=== PATIENT | female | born 1985 | race Caucasian/White ===

== ENCOUNTER 2021-06-19 04:52 | Inpatient (IN) | payer BC, SELFPAY ==
[2021-06-19] VITALS (92 sets, daily range): BP systolic 78–159; BP diastolic 42–117; PULSE 76–133; RESP 16; TEMP 36.4–37.6; O2SAT 97–100; BMI 36.3
--- NOTE | 2021-06-19 05:24 | LDADM ---
This patient, Arabella Putnam, was admitted to Labor/Delivery/Recovery 107 on 06/19/21 at 04:52. Plans for labor, pain management and were discussed with patient. Patient/family oriented to hospital policies and general routines including ID bracelet, bed and alarms, visiting hours, pain management, procedures, bathroom and other care routines, personal items, smoking policy, room service/diet and guest tray routines, infant security routines, and visiting hours. Patient/Family are encouraged to report perceived risks to care and to ask questions if they do not understand what they are told or what they should do. See OBIX for further documentation.
[2021-06-19 05:47] LABS: Basophils Percent Auto 0.2 % (0.2-1.2); Eosinophils Absolute Auto 0.1 K/mm3 (0-0.3); Eosinophils Percent Auto 0.5 % (0-4.4); Hematocrit 32.4 % (37.0-47.0); Hemoglobin 10.3 g/dL (12.0-15.0); Immature Granulocyte Absolute 0.06 K/mm3 (0.00-0.031); Immature Granulocyte Percent A 0.5 % (0-0.5); Lymphocytes Percent Auto 12.5 % (18.3-44.2); Mean Corpuscular HGB Conc 31.8 g/dl (32-36); Mean Corpuscular Hemoglobin 27.2 pg (26-34); Mean Corpuscular Volume 85.5 fl (80-100); Mean Platelet Volume 10.5 fl (7.4-10.4); Monocytes Absolute Auto 0.9 K/mm3 (0.1-0.6); Neutrophils Absolute Auto 10.2 K/mm3 (1.3-6.7); Neutrophils Percent Auto 79.3 % (45.5-73.1); Platelet Count Result 322 k/mm3 (150-375); Red Blood Count 3.79 M/mm3 (4.2-5.4); Red Cell Distribution Width 14.1 % (11.5-14.5); White Blood Count 12.8 K/mm3 (4.5-10.0)
[2021-06-19] MEDS: LACTATED RINGERS 1,000 ML 125 ML IV CONT ×2 (06:19→09:56)
[2021-06-19] MEDS: OXYTOCIN 30 UNITS/NS 500 ML 30 UNITS/500 ML BAG 6 UNITS IV CONT (06:19)
--- NOTE | 2021-06-19 06:24 | WPDANESEPP ---
Anes - Eval Pre Procedure Procedure: Labor epidural Date/Time: 06/19/21 06:24 Surgeon: Pedro Preop Diagnosis: Abd pain with contractions Pre Op Diagnosis: IOL Patient Data Age: 35 Gender: F Height: 1.7 m Weight: 105.2 kg Last Vital Signs Pulse 101 H 06/19/21 06:15 BP 114/68 06/19/21 06:15 Allergies Allergy/AdvReac Type Severity Reaction Status Date / Time No Known Allergies Allergy Verified 05/28/21 14:37 Home Medications Medication Instructions Recorded Confirmed Type fluoxetine 20 mg PO DAILY 06/19/21 06/19/21 History Laboratory Tests 06/19/21 06/19/21 05:29 05:29 WBC 12.8 K/mm3 H K/mm3 (4.5-10.0) RBC 3.79 M/mm3 L M/mm3 (4.2-5.4) Hgb 10.3 g/dL L g/dL (12.0-15.0) Hct 32.4 % L % (37.0-47.0) MCV 85.5 fl fl (80-100) MCH 27.2 pg pg (26-34) MCHC 31.8 g/dl L g/dl (32-36) RDW 14.1 % % (11.5-14.5) Plt Count 322 k/mm3 k/mm3 (150-375) MPV 10.5 fl H fl (7.4-10.4) Immature Gran % (Auto) 0.5 % % (0-0.5) Neut % (Auto) 79.3 % H % (45.5-73.1) Lymph % (Auto) 12.5 % L % (18.3-44.2) [place] % (Auto) 7.0 % % (2.6-8.5) Eos % (Auto) 0.5 % % (0-4.4) Baso % (Auto) 0.2 % % (0.2-1.2) Lymph # (Auto) 1.60 K/mm3 K/mm3 (0.9-3.2) [place] # (Auto) 0.9 K/mm3 H K/mm3 (0.1-0.6) Eos # (Auto) 0.1 K/mm3 K/mm3 (0-0.3) Baso # (Auto) 0.0 K/mm3 K/mm3 (0.0-0.1) Abs Immat Gran (auto) 0.06 K/mm3 H K/mm3 (0.00-0.031) Absolute Neuts (auto) 10.2 K/mm3 H K/mm3 (1.3-6.7) Absolute Nucleated RBC 0.0 K/mm3 K/mm3 (0.0-0.012) Nucleated RBC % 0.0 % % (0.0-0.2) RPR Pending Patient hx anesthesia problems: none Family hx anesthesia problems: none Results Review: All pre-operative results and documents have been reviewed as part of the pre-operative evaluation. [facility] Past Medical History Medical History Obesity and not yet delivered Surgical History Surgical History H/O discectomy Family History Family History Father Diabetes type 2, controlled Mother A-fib Congestive heart failure Social History Social History Smoking status: Never smoker Substance use: never Spiritual care concerns: No Exam Day of Procedure 06/19/21 06:24 Patient weight: obese Heart: regular rate and rhythm Airway: Mallampati scale class III Neurological: alert and oriented
[2021-06-19 08:25] LABS: Rapid Plasma Reagin Non-Reactive (NonReactive)
--- NOTE | 2021-06-19 08:45 | WPDOBADMIT ---
Obstetrics - Admit Note Admission Note: record reviewed. Additions to the history and/or subsequent changes in the physical findings follow. 35 y/o at 39 2/7 weeks here for induction of labor. GBS neg. AVSS NST reactive TOCO: contractions every 2-4 min ABD soft, nontender, gravid, vertex EXT nontender Cervix 3-4/50/-2. AROM with clear fluid. A: IUP at term with favorable cervix, desiring induction of labor. P: Oxytocin. Anticipate .
--- NOTE | 2021-06-19 13:30 | PM.OBPNLAB ---
Pain Control Date/time seen: 06/19/21 1330 Comfortable with epidural. AVSS NST reactive TOCO: contractions every 2-4 min Cervix /0 Continue labor.
--- NOTE | 2021-06-19 18:13 | PM.OBPRVD ---
OB - Delivery Note Procedure Delivery date: 06/19/21 Procedure: Induction of labor with Induction method: AROM and Per Pitocin Protocol Delivery monitor: External FHT and External Uterine Route of delivery: Laceration Description: Perineal - 2nd Degree Delivery repair: vicryl (3-0) Specimen: Yes (cord blood) Quantitative Blood Loss (ml): 380 Anesthesia type: Epidural Disposition: PACU Complications: None Narrative: 35 y/o at 39 2/7 weeks gestation who presented to the hospital for induction of labor. Oxytocin was administered intravenously. Amniotomy was performed with return of clear fluid. She received an epidural for pain control. Her labor progressed and her cervix dilated completely. She pushed with good effort and delivered the infant's head to the perineum. A loose nuchal cord was splinted and the body delivered. The cord was reduced. The nose and mouth were bulb suctioned. After a delay, the cord was clamped and cut. The infant was handed off the field. Cord blood was collected. The placenta delivered spontaneously and was grossly normal in appearance. The usual 3 vessel cord was noted. A second degree midline perineal laceration was sustained. This was reapproximated using 3 0 Vicryl in the usual layered fashion. Excellent hemostasis resulted as did excellent reapproximation of the normal anatomy. Needle and instrument counts were correct. The patient was taken to recovery room in stable condition. The went to the nursery in stable condition. I was present and scrubbed for the entire delivery. [place] Baby Date of : 06/19/21 Time of : 17:51 Weeks of gestation at delivery: 39 Infant gender: Male Weight (pounds): 7 Weight (ounces): 15 presentation: vertex position: Left Occiput Transverse Placenta delivery description: Spontaneous and Normal Configuration Cord Vessel Description: 3 Vessels and Delayed Cord Clamping score one minute: 8 score five minutes: 8
--- NOTE | 2021-06-19 18:15 | PM.OBDSVD ---
DS: Admitting Diagnosis Discharge Date 06/21/21 Admitting Diagnosis IUP at 39 2/7 weeks DS: Discharge Diagnosis Discharge Diagnosis (1) (normal spontaneous vaginal delivery): Code(s): O80 - Encounter for full-term uncomplicated delivery Status: Acute OB - DS: Summary OB Procedures : None OB Procedures Intrapartum: Spontaneous Vag Delivery OB Procedures: : None DS: Data Data Completed and Pending Labs on day of discharge: Labs from last 24 hours 06/19/21 06/19/21 06/19/21 05:29 05:29 05:29 WBC 12.8 H RBC 3.79 L Hgb 10.3 L Hct 32.4 L MCV 85.5 MCH 27.2 MCHC 31.8 L RDW 14.1 Plt Count 322 MPV 10.5 H Immature Gran % (Auto) 0.5 Neut % (Auto) 79.3 H Lymph % (Auto) 12.5 L [place] % (Auto) 7.0 Eos % (Auto) 0.5 Baso % (Auto) 0.2 Lymph # (Auto) 1.60 [place] # (Auto) 0.9 H Eos # (Auto) 0.1 Baso # (Auto) 0.0 Abs Immat Gran (auto) 0.06 H Absolute Neuts (auto) 10.2 H Absolute Nucleated RBC 0.0 Nucleated RBC % 0.0 RPR Non-reactive Blood Type O Negative Antibody Screen Negative Discharge Plan Discharge Attending physician on discharge: Miah Vasquez Discharging Clinician: Miah Vasquez Patient Disposition: Home, Self-Care Activity: pelvic rest Diet: regular Discharge Instructions: Education: Mom and Baby Guide Given to: Mother Follow-Up: Call your delivering provider's office for an appointment to be seen in: 6 Weeks Mom and baby should come to the [facility] for the follow-up appointment. Appointment Date/Time: Tuesday, June 22, 2021 at 10:00 a.m. What to expect at your follow-up visit: Blood Pressure Check Physical Assessment Call [phone] if you are unable to keep your appointment time. BREAST CARE: * Wear a snug supportive bra. * For engorgement discomfort: Breast Feeding: * Apply warm moist washcloths * Express milk as needed to relieve engorgement * Wear loose clothing Bottle Feeding: * May apply ice packs * For sore nipples: * Identify correct latch-on * Apply warm moist washcloths before and after nursing * Air dry nipples after nursing * May apply Lansinoh cream to nipples EPISIOTOMY/PERINEAL CARE: * Until bleeding stops, use your brendon bottle after urinating * Change your pad frequently throughout the day * You may take sitz baths several times a day (fill your bathtub with warm water and soak for 20 minutes.) Do NOT bathe in the water * No tub baths until seen by your physician - You may shower ACTIVITY: * Rest as much as possible. * Do not exercise or lift anything heavier than your baby (such as laundry or other children.) * Avoid stairs or driving as much as possible. * Do not put anything into the vagina. No douching, tampons, or sexual activity until seen by physician. NOTIFY PHYSICIAN IF YOU HAVE ANY QUESTIONS OR IF ANY OF THE FOLLOWING SYMPTOMS OCCUR: * If your perineum becomes red, swollen, or more painful than what you have experienced in the hospital. * If your vaginal bleeding becomes foul smelling. * If your vaginal bleeding becomes more heavy than a period or if your bleeding changes from pink to bright red. However, you may pass an occasional walnut-sized clot once or twice for the first week . * If you experience a sharp, shooting pain in you calves. * If you discover a hard, reddened area on your breast or if you experience flu-like symptoms. DIET: * Eat regular, well-balanced meals. * Drink plenty of fluids daily. If , drink to thirst. Call or return if temperature above 100.4? F, increased abdominal pain, increased vaginal bleeding or any new problems. Stand Alone Forms: General Discharge Information Follow-up/Referrals: Miah Vasquez MD [Physician] - 6 Weeks Discharge
[2021-06-19] MEDS: OXYTOCIN 30 UNITS/NS 500 ML 30 UNITS/500 ML BAG 125 UNITS IV CONT (18:18)
--- NOTE | 2021-06-19 21:02 | OBPPTRN ---
Patient transferred to post room #288 via ( wheelchair ). Support person present. Oriented to unit, room, information board, rooming in, admission packet and security measures. Patient verbalizes understanding.
[2021-06-20 03:40] VITALS: BP 108/54; PULSE 97; RESP 16; TEMP 37.1
[2021-06-20 04:41] LABS: Hematocrit 30.9 % (37.0-47.0); Hemoglobin 9.5 g/dL (12.0-15.0)
[2021-06-20 07:55] VITALS: BP 97/51; PULSE 86; RESP 16; TEMP 37; O2SAT 99
--- NOTE | 2021-06-20 08:00 | PC.NURSE ---
PT introductions made and plan of care discussed per post , pain management, breast/bottle feeding, daily care activities. PT and significant other both recipients of such instructions and no barriers to learning identified at this time. PT received instructions this shift via one to one discussion, mom baby care guide book, demonstrations. PT verbalized understanding of such care.
[2021-06-20] MEDS: FLUoxetine HCL 20 MG CAPSULE PO (09:01)
[2021-06-20] MEDS: DOCUSATE SODIUM 100 MG CAPSULE PO ×2 (09:01→17:06)
[2021-06-20] MEDS: POLYSACCHARIDE IRON COMPLEX 150 MG CAPSULE PO ×2 (09:01→17:06)
[2021-06-20] MEDS: IBUPROFEN 600 MG TABLET PO ×2 (09:02→17:05)
[2021-06-20] MEDS: ACETAMINOPHEN 325 MG TABLET 650 MG PO ×2 (09:03→17:04)
--- NOTE | 2021-06-20 10:09 | WPDANLDPN2 ---
Anes-Prog Note L&D Date/Time: 06/20/21 10:09 Comfortable throughout: labor and delivery Neuraxial method: epidural Epidural/Spinal procedure site: clean & non-tender Neuro status: Neuro function grossly intact. Cardiovascular status: normal Respiratory status: normal Airway patency: baseline Mental status: baseline Post-Op hydration status: normal Vital Signs: Last Vital Signs Temp 37.0 C 06/20/21 07:55 Pulse 86 06/20/21 07:55 Resp 16 06/20/21 07:55 BP 97/51 L 06/20/21 07:55 Pulse Ox 99 06/20/21 07:55 Pain score (VAS): 0 I/O: Intake & Output 06/19/21 06/20/21 06/20/21 23:59 07:59 15:59 Output Total 35 Balance -35 Post-procedural complaints: none Patient feedback: Patient satisfied with anesthetic care.
[2021-06-20 11:41] VITALS: BP 97/52; PULSE 89; RESP 16; TEMP 36.4; O2SAT 99
--- NOTE | 2021-06-20 15:56 | PC.NURSE ---
[phone] Consulted with patient to assess needs related to . Mother led conversation with her experience with feeding baby so far. Mother has her baby on the right breast in cross cradle position. Reviewed good handwashing when working with infant, breast, nipples and how to protect the nipples with a deep latch. Encouraged understanding the benefits of skin to skin, responding to feeding cues, frequencies of feeding 8-12 times in 24 hours (approximately 2-3 hours), duration of feedings, milk production, intake/output feeding sheet and signs of adequate intake. Discussed stimulating infant with skin to skin, hand expressing colostrum, touch and talking to to encourage eating at the breast. Reviewed positioning and alignment, supporting breast, off-centered (asymmetrical latch) and leading with the chin with big open wide gape. Education given to mother of how to visualize suck/swallow ratios and drinking at the breast. Infant was able to maintain latch without discomfort to mother. Nipple care, comfort and healing with warm, wet washcloth to rinse breast and leave to air-dry. Colostrum may be left on nipples to dry but have clean hands when touching the nipple/breast. Resources used to facilitate learning were used from the mom and baby guide. Mother voiced understanding responding to feeding cues, may need to stimulating approximately 2-3 hours from the start of the last feeding, calling for assistance if the does not latch or there discomfort . Reported to primary RN. [phone] Breast pump provided due to mothers request related to not latching to the left breast due to a flat nipple. Reviewed information regarding pump care, hand washing, nipple care and pumping 8 times in 24 hours (1-2 at night) for 10-15 minutes. Discussed she may want to pump after feedings or between feedings. If after feeding, rest for 5-10 minutes. Discussed the risks and benefits of pumping and using a nipple shield. Encouraged mom to place skin to skin, breast massage and use hand expression and/or a breast pump in a relaxing atmosphere. Reviewed recording pumping schedule on the feeding sheet. Referred to the visual handout along with the mom and baby guide as a resource and when to call a provider. Reported to primary RN.
[2021-06-20 19:06] VITALS: BP 104/52; PULSE 83; RESP 18; TEMP 36.8
[2021-06-21 08:00] VITALS: BP 110/61; PULSE 76; RESP 18; TEMP 36.3; O2SAT 100
[2021-06-21] MEDS: ACETAMINOPHEN 325 MG TABLET 650 MG PO (08:25)
[2021-06-21] MEDS: POLYSACCHARIDE IRON COMPLEX 150 MG CAPSULE PO (08:26)
[2021-06-21] MEDS: MULTIVIT/MIN/PREN/FOL AC/IRON TABLET 1 TAB PO (08:26)
[2021-06-21] MEDS: DOCUSATE SODIUM 100 MG CAPSULE PO (08:26)
[2021-06-21] MEDS: IBUPROFEN 600 MG TABLET PO (08:26)
[2021-06-21] MEDS: FLUoxetine HCL 20 MG CAPSULE PO (08:27)
[2021-06-22 11:22] VITALS: BP 106/62; PULSE 78; RESP 18; TEMP 36.8; O2SAT 99
--- NOTE | 2021-06-28 10:06 | PC.NURSE ---
Called wanting to schedule an outpatient appt. Saw Dr. Aguilar for appt yesterday. No jaundice or output concerns per patient. Mom is concerned because infant is not gaining weight. States she is feeding formula at night and feeding pumped breast milk or during the day depending on if infant will latch to the breast. States takes 2 ounces per feeding per bottle. is feeding every 3 hours during the day and every 4 hours at night. Encouraged mom to continue to increase feeding amounts as infant desires. States is content after day time feedings. Mom is pumping after every feeding. Appt made for 10 am Thursday.
--- NOTE | 2021-06-28 11:13 | PC.NURSE ---
Called patient back and offered her info on professionals in the community that could possibly see her today or over the weekend. States she will keep appt for Thursday at this time.
== END 2021-06-21 11:37 | disposition home or self-care (01) | DRG 807 ==
LOC: ANHLDR 18:16 → ANHOB2 06-21 09:57 → ANHLDR 06-24 10:20 → ANHOB2 06-24 10:20
PROVIDERS: Admitting Provider Obstetrics & Gynecology; PCP Family Medicine; Visit Provider Student in an Organized Health Care Education/Training Program
DX: O70.1 Second degree perineal laceration during delivery (principal); Z37.0 Single live birth; Z3A.39 39 weeks gestation of pregnancy
CPT/HCPCS: 36415; 85014; 85018; 85025; 86592; 86850; 86900; 86901; A9270; J2590; J2795; J7120

== ENCOUNTER 2023-10-26 16:45 | Outpatient (RCR) | payer BC, SELFPAY ==
[2023-10-26 18:09] VITALS: BP 106/64; PULSE 101
== END 2024-01-24 23:59 | disposition home or self-care (01) ==
LOC: ANHOBOP 16:45
PROVIDERS: PCP Family Medicine; Visit Provider Obstetrics & Gynecology
DX: O36.8130 Decreased fetal movements, third trimester, not applicable or unspecified (principal); Z3A.32 32 weeks gestation of pregnancy
CPT/HCPCS: 59025

== ENCOUNTER 2023-12-04 03:33 | Inpatient (IN) | payer BC, SELFPAY ==
[2023-12-04] VITALS (124 sets, daily range): BP systolic 86–127; BP diastolic 39–93; PULSE 66–104; RESP 16; TEMP 36.4–36.7; O2SAT 96–100; BMI 36.2
[2023-12-04 04:43] LABS: Basophils Percent Auto 0.2 % (0.2-1.2); Eosinophils Absolute Auto 0.1 K/mm3 (0-0.3); Eosinophils Percent Auto 0.6 % (0-4.4); Hemoglobin 11.3 g/dL (12.0-15.0); Immature Granulocyte Absolute 0.04 K/mm3 (0.00-0.031); Immature Granulocyte Percent A 0.4 % (0-0.5); Lymphocytes Absolute Auto 1.49 K/mm3 (0.9-3.2); Mean Corpuscular HGB Conc 32.3 g/dl (32-36); Mean Corpuscular Hemoglobin 26.3 pg (26-34); Mean Corpuscular Volume 81.4 fl (80-100); Mean Platelet Volume 10.8 fl (7.4-10.4); Monocytes Absolute Auto 0.6 K/mm3 (0.1-0.6); Monocytes Percent Auto 5.5 % (2.6-8.5); Neutrophils Absolute Auto 8.5 K/mm3 (1.3-6.7); Neutrophils Percent Auto 79.3 % (45.5-73.1); Platelet Count Result 312 k/mm3 (150-375); Red Cell Distribution Width 14.2 % (11.5-14.5); White Blood Count 10.6 K/mm3 (4.5-10.0)
--- NOTE | 2023-12-04 04:46 | LDADM ---
This patient, Arabella Putnam, was admitted to Labor/Delivery/Recovery 104 on 12/04/23 at 03:33. Plans for labor, pain management and were discussed with patient. Patient/family oriented to hospital policies and general routines including ID bracelet, bed and alarms, visiting hours, pain management, procedures, bathroom and other care routines, personal items, smoking policy, room service/diet and guest tray routines, infant security routines, and visiting hours. Patient/Family are encouraged to report perceived risks to care and to ask questions if they do not understand what they are told or what they should do. See OBIX for further documentation.
--- NOTE | 2023-12-04 05:02 | WPDANESEPP ---
Anes - Eval Pre Procedure Procedure: labor epidural Date/Time: 12/04/23 05:02 Pre Op Diagnosis: ROM Patient Data Age: 38 Gender: F Height: 1.7 m Weight: 105 kg Last Vital Signs Pulse 79 12/04/23 05:00 BP 123/93 H 12/04/23 05:00 O2 Del Method Room Air 12/04/23 04:46 Allergies Allergy/AdvReac Type Severity Reaction Status Date / Time No Known Allergies Allergy Verified 11/17/23 12:25 Home Medications Medication Instructions Recorded Confirmed Type fluoxetine 20 mg capsule 40 mg PO DAILY 06/19/21 11/17/23 History vits no.126-ferrous fum 1 tablet PO DAILY 11/17/23 11/17/23 History 28 mg iron-folic acid 800 mcg tablet (Classic ) Laboratory Tests 12/04/23 04:27 WBC 10.6 H K/mm3 (4.5-10.0) RBC 4.30 M/mm3 (4.2-5.4) Hgb 11.3 L g/dL (12.0-15.0) Hct 35.0 L % (37.0-47.0) MCV 81.4 fl (80-100) MCH 26.3 pg (26-34) MCHC 32.3 g/dl (32-36) RDW 14.2 % (11.5-14.5) Plt Count 312 k/mm3 (150-375) MPV 10.8 H fl (7.4-10.4) Immature Gran % (Auto) 0.4 % (0-0.5) Neut % (Auto) 79.3 H % (45.5-73.1) Lymph % (Auto) 14.0 L % (18.3-44.2) [place] % (Auto) 5.5 % (2.6-8.5) Eos % (Auto) 0.6 % (0-4.4) Baso % (Auto) 0.2 % (0.2-1.2) Lymph # (Auto) 1.49 K/mm3 (0.9-3.2) [place] # (Auto) 0.6 K/mm3 (0.1-0.6) Eos # (Auto) 0.1 K/mm3 (0-0.3) Baso # (Auto) 0.0 K/mm3 (0.0-0.1) Abs Immat Gran (auto) 0.04 H K/mm3 (0.00-0.031) Absolute Neuts (auto) 8.5 H K/mm3 (1.3-6.7) Absolute Nucleated RBC 0.000 K/mm3 (0.0-0.012) Nucleated RBC % 0.0 % (0.0-0.2) RPR Pending HIV 1&2 Ab/P24 Ag 4thGn Pending Blood Type Pending Antibody Screen Pending Patient hx anesthesia problems: none Family hx anesthesia problems: none Results Review: All pre-operative results and documents have been reviewed as part of the pre-operative evaluation. [facility] Past Medical History Medical History Obesity and not yet delivered Surgical History Surgical History H/O discectomy Family History Family History Father Diabetes type 2, controlled Mother A-fib Congestive heart failure Social History Social History Smoking status: Never smoker Substance use: never Do You Feel Safe in your Home?: Yes Lack of Transportation: No Lack of Food: Never True Current Housing: I Have Housing Concerned About Future Housing: No Difficulty Paying Gas/Electric Bills: No Difficulty Paying for Meds: No Currently Unemployed: No Education: Associate Degree Difficulty w/ Childcare or Family Care: No Spiritual care concerns: No Exam Day of Procedure 12/04/23 05:02 Patient weight: obese Heart: regular rate and rhythm Lungs: normal air movement Airway: Mallampati scale Neurological: alert and oriented
[2023-12-04] MEDS: LACTATED RINGERS 1,000 ML 125 ML IV CONT ×2 (05:09→09:16)
[2023-12-04] MEDS: ONDANSETRON INJ 4 MG/2 ML VIAL IV PUSH ×2 (05:09→13:37)
[2023-12-04 05:15] LABS: Rapid Plasma Reagin Non-Reactive (NonReactive)
[2023-12-04 05:44] LABS: HIV 1/2 Ab P24 Ag Result Negative (Negative)
--- NOTE | 2023-12-04 06:45 | PM.IMHP ---
H&P: HPI History of Present Illness Date/Time: 12/04/23 06:45 Chief Complaint: Rupture membranes at term Narrative: 38-year-old 3 para 1 whose last bits free fluid 02/24/2023, EDC 9 06/06, confirmed by 7 week ultrasound who presents at 38 half weeks gestation with ruptured membranes. Her has been relatively uncomplicated. She received RhoGAM. She had an abnormal 1hour diabetic screen but 4/4 3hour. She suffers from depression is on fluoxetine she has a history of abnormal Paps she did receive RhoGAM that she desired desires tubal ligation PMFSH Past Medical History Medical History Obesity and not yet delivered Surgical History Surgical History H/O discectomy Family History Family History Father Diabetes type 2, controlled Mother A-fib Congestive heart failure Social History Social History Smoking status: Never smoker Substance use: never Do You Feel Safe in your Home?: Yes Lack of Transportation: No Lack of Food: Never True Current Housing: I Have Housing Concerned About Future Housing: No Difficulty Paying Gas/Electric Bills: No Difficulty Paying for Meds: No Currently Unemployed: No Education: Associate Degree Difficulty w/ Childcare or Family Care: No Spiritual care concerns: No Meds Home Medications and Allergies Home Medications Medication Instructions Recorded Confirmed Type fluoxetine 20 mg capsule 40 mg PO DAILY 06/19/21 11/17/23 History vits no.126-ferrous fum 1 tablet PO DAILY 11/17/23 11/17/23 History 28 mg iron-folic acid 800 mcg tablet (Classic ) Allergies Allergy/AdvReac Type Severity Reaction Status Date / Time No Known Allergies Allergy Verified 11/17/23 12:25 Vital Signs Vital Signs - 24 hr 12/04/23 04:30 12/04/23 04:45 12/04/23 05:00 Temperature Pulse Rate 85 79 79 Blood Pressure 116/72 118/71 123/93 H Pulse Oximetry Oxygen Delivery 12/04/23 05:03 12/04/23 05:08 12/04/23 05:13 Temperature Pulse Rate Blood Pressure Pulse Oximetry 99 99 100 Oxygen Delivery 12/04/23 05:15 12/04/23 05:16 12/04/23 05:18 Temperature Pulse Rate 82 66 73 Blood Pressure 114/58 L 104/58 L 108/61 Pulse Oximetry 99 Oxygen Delivery 12/04/23 05:20 12/04/23 05:21 12/04/23 05:23 Temperature Pulse Rate 86 Blood Pressure 110/93 H 100/52 L Pulse Oximetry 96 Oxygen Delivery 12/04/23 05:25 12/04/23 05:28 12/04/23 05:30 Temperature Pulse Rate 84 94 84 Blood Pressure 106/55 L 107/58 L 100/51 L Pulse Oximetry 97 98 Oxygen Delivery 12/04/23 05:33 12/04/23 05:35 12/04/23 05:38 Temperature Pulse Rate 88 90 89 Blood Pressure 101/53 L 101/51 L 104/49 L Pulse Oximetry 100 Oxygen Delivery 12/04/23 05:40 12/04/23 05:43 12/04/23 05:45 Temperature Pulse Rate 95 90 Blood Pressure 113/60 104/55 L Pulse Oximetry 97 99 Oxygen Delivery 12/04/23 05:46 12/04/23 05:48 12/04/23 05:50 Temperature Pulse Rate 94 90 Blood Pressure 86/50 L 107/61 Pulse Oximetry 100 Oxygen Delivery 12/04/23 05:55 12/04/23 06:00 12/04/23 06:01 Temperature Pulse Rate 75 Blood Pressure 96/44 L Pulse Oximetry 100 100 Oxygen Delivery 12/04/23 06:05 12/04/23 06:10 12/04/23 06:15 Temperature Pulse Rate 75 Blood Pressure 95/47 L Pulse Oximetry 100 99 98 Oxygen Delivery 12/04/23 06:20 12/04/23 06:25 12/04/23 06:30 Temperature Pulse Rate 79 Blood Pressure 94/53 L Pulse Oximetry 98 98 97 Oxygen Delivery 12/04/23 06:35 12/04/23 06:33 12/04/23 06:40 Temperature 97.6 F Pulse Rate Blood Pressure Pulse Oximetry 100 97 Oxygen Delivery 12/04/23 04:
[2023-12-04] MEDS: OXYTOCIN 30 UNITS/NS 500 ML 30 UNITS/500 ML BAG IV CONT (06:53)
--- NOTE | 2023-12-04 11:52 | PM.OBPRVD ---
OB - Vaginal Delivery Note Procedure Delivery date: 12/04/23 Induction method: None Delivery augmentation: Pitocin Delivery monitor: External FHT and External Uterine Route of delivery: Episiotomy description: None Laceration Description: Perineal - 1st Degree Delivery repair: vicryl Specimen: No Quantitative Blood Loss (ml): 61 Anesthesia type: Epidural Disposition: Floor Complications: No immediate complications Narrative: Patient was admitted with 12/04/2023 in the early a.m.. She has spontaneously ruptured prior to admission. She progressed to remove 1st stage labor and did have some Pitocin and answered direction which was complete she pushed the head spontaneously in the IDRIS position. Anterior posterior shoulder delivered spontaneously. Nuchal cord checked noted to be loose x1 we removed the left. Cord clamped x2 and cut infant passed off the table with across. Placenta delivered intact spontaneously. Twenty of Pitocin placed in the IV to help firm the uterus. After expecting the lateral sidewalls a small 1st degree perineal laceration was noted. This was closed with the [id number] 2-0 Vicryl blood loss was 61cc. All sponge, needle, instrument counts were correct. Baby Date of : 12/04/23 Time of : 11:39 Gestational Age by Date: 38 Infant gender: Male presentation: vertex position: Right Occiput Anterior Placenta delivery description: Spontaneous Cord Vessel Description: 3 Vessels, Nuchal Cord and Loose
--- NOTE | 2023-12-04 11:55 | PM.DS ---
DS: Admitting Diagnosis Discharge Date 12/04/2023 Admitting Diagnosis Term ruptured membranes DS: Discharge Diagnosis Discharge Diagnosis (1) Term : Code(s): Z34.90 - Encounter for supervision of normal , unspecified, unspecified trimester Status: Acute DS: Summary Hospital Course Reason for hospitalization: patient was admitted on the a.m. of 12/04/2023 with spontaneous rupture membranes at term Hospital Course: following her a rapid delivery on 12/04/2023 hospital course unremarkable. She remained afebrile. She was up, voiding without difficulty, eating regular diet, ambulating, general complaints. Time Spent with Patient Time attestation: Total time spent providing and/or coordinating discharge services: Exam Const: General: cooperative, healthy appearing and comfortable Nutritional Appearance: overweight Orientation/consciousness: oriented to person, oriented to place and oriented to time HENMT: Head: normal to inspection Resp: Effort & Inspection: normal respiratory effort Cardio: Rate: regular rate Rhythm: regular rhythm Heart sounds: S1 normal heart sound present and S2 normal heart sound present GI: Inspection: normal to inspection ( Fundus firm below the umbilicus) DS: Data Data Completed and Pending Labs on day of discharge: Labs from last 24 hours 12/04/23 04:27 WBC 10.6 H RBC 4.30 Hgb 11.3 L Hct 35.0 L MCV 81.4 MCH 26.3 MCHC 32.3 RDW 14.2 Plt Count 312 MPV 10.8 H Immature Gran % (Auto) 0.4 Neut % (Auto) 79.3 H Lymph % (Auto) 14.0 L [place] % (Auto) 5.5 Eos % (Auto) 0.6 Baso % (Auto) 0.2 Lymph # (Auto) 1.49 [place] # (Auto) 0.6 Eos # (Auto) 0.1 Baso # (Auto) 0.0 Abs Immat Gran (auto) 0.04 H Absolute Neuts (auto) 8.5 H Absolute Nucleated RBC 0.000 Nucleated RBC % 0.0 RPR Non-reactive HIV 1&2 Ab/P24 Ag 4thGn Negative Blood Type O Negative Antibody Screen Negative Discharge Plan Discharge Attending physician on discharge: Sunday Ohara Discharging Clinician: Sunday Ohara Patient Disposition: Home, Self-Care Activity: may shower and no straining Diet: heart healthy Wound Care Instructions: follow printed instructions Discharge Instructions: Education: Mom and Baby Guide Given to: Mother Follow-Up: Call your delivering provider's office for an appointment to be seen in: 1 Week What to expect at your follow-up visit: Blood Pressure Check Physical Assessment Call [phone] if you are unable to keep your appointment time. BREAST CARE: * Wear a snug supportive bra. * For engorgement discomfort: Breast Feeding: * Apply warm moist washcloths * Express milk as needed to relieve engorgement * Wear loose clothing Bottle Feeding: * May apply ice packs * For sore nipples: * Identify correct latch-on * Apply warm moist washcloths before and after nursing * Air dry nipples after nursing * May apply Lansinoh cream to nipples ABDOMINAL INCISION: (if applicable) * Allow incision to air dry * Do NOT use lotions for powders on your incision * When showering, allow soap and water to run over the incision, but do not wash incision EPISIOTOMY/PERINEAL CARE: * Until bleeding stops, use your brendon bottle after urinating * Change your pad frequently throughout the day * You may take sitz baths several times a day (fill your bathtub with warm water and soak for 20 minutes.) Do NOT bathe in the water * No tub baths until seen by your physician - You may shower ACTIVITY: * Rest as much as possible. * Do not exercise or lift anything heavier than your baby (such as laundry or other children.) * Avoid stairs or driving as much as possible. * Do not put anything into the vagina. No douching, tampons, or sexual activity until seen by physician. NOTIFY PHYSICIAN IF YOU HAVE ANY QUESTI
[2023-12-04] MEDS: OXYTOCIN 30 UNITS/NS 500 ML 30 UNITS/500 ML BAG 125 UNITS IV CONT (12:08)
[2023-12-04] MEDS: WITCH HAZEL 40 PADS 1 PAD TOPICAL (13:36)
[2023-12-04] MEDS: BENZOCAINE 20% AER SPR (*SP) 56 GM CAN 1 SPRAY TOPICAL (13:36)
[2023-12-04] MEDS: ACETAMINOPHEN 325 MG TABLET 650 MG PO (13:36)
[2023-12-04 13:55] LABS: Hematocrit 31.4 % (37.0-47.0); Hemoglobin 9.9 g/dL (12.0-15.0)
--- NOTE | 2023-12-04 14:09 | PC.NURSE ---
1230: EMMETT Sharpe informed Dr. Mary Granger the patient's baby is getting transferred and patient is requesting to be discharged SENDY. Orders to discharge patient home in a couple hours if patient's bleeding is WNL and vital signs are WNL.
[2023-12-04] MEDS: RHO(D) IMMUNE GLOBULIN 300 MCG/2 ML SYRINGE IM (14:59)
== END 2023-12-04 16:05 | disposition home or self-care (01) | DRG 807 ==
PROVIDERS: Obstetrics & Gynecology; Admitting Provider Obstetrics & Gynecology; PCP Family Medicine; Visit Provider Obstetrics & Gynecology
DX: O69.81X0 Labor and delivery complicated by cord around neck, without compression, not applicable or unspecified (principal); Z37.0 Single live birth; Z3A.38 38 weeks gestation of pregnancy; O70.0 First degree perineal laceration during delivery
CPT/HCPCS: 36415; 85014; 85018; 85025; 85461; 86592; 86703; 86850; 86900; 86901; 90384; A9270; G0432; J2405; J2590; J2790; J2795; J7120

== ENCOUNTER 2024-02-24 01:17 | Day surgery (SDC) | payer BC, SELFPAY ==
[2024-02-17 15:20] VITALS: BMI 31.4
--- NOTE | 2024-02-17 15:25 | PC.NURSE ---
Report to the Outpatient Waiting Room, entrance under the green pavilion located off [facility], at time _1pm_ on date _26-02-1025_. Planned Procedure Time: _3pm_.? Time changes happen often and if your time is changed the preop area will call you the afternoon before. - You and your visitor will be asked to self-screen and do not enter if you have any COVID symptoms. Please call surgeon if you need to reschedule. - A mask is optional within the hospital at this time. Patients may have clear liquids (water, carbonated beverages, clear teas, apple juice) until 3 hours prior to surgery with a maximum of 20 ounces. - No food from midnight until time of surgery and no smoking Take only the following medications with a SIP of water on the morning of surgery: __None__ DO NOT STOP ANY OF YOUR OTHER PRESCRIPTION MEDICATIONS PRIOR TO SURGERY EXCEPT THE FOLLOWING Medications to discontinue per physician ___None___ Date to take last dose Please no make-up, nail urdu, hairspray, perfume, deodorant, or body powder the day of surgery.? No jewelry (including any body piercings) or valuables the day of surgery, leave them at home.? Please take a shower or bath the night before, or the morning of, surgery with an antibacterial soap.? Wear comfortable, loose fitting clothing.? - Jewelry must be removed prior to entering the operating room.? Rings and piercings that are not removed may be cut off. - The hospital will not accept responsibility for valuables.? - Please leave all valuables, including medications, at home the day of surgery. If you are going home after surgery, a licensed passenger coach driver must drive you home.? - NO public transportation without another adult if you receive anesthesia. - We recommend that an adult stay with you for 24 hours following discharge. - We also recommend that you do not drive, make important decision, drink alcoholic beverages, or take any drugs that were not prescribed by your health care provider for at least 24 hours after your discharge time. Follow any additional instructions given to you from your surgeon. Telephone instructions given to _Arabella___and asked if any additional questions and then verbalized understanding. Patient advised to call surgeon office or pre surgery nurse liaison [phone] if any additional questions.
[2024-02-24] VITALS (11 sets, daily range): BP systolic 91–125; BP diastolic 47–75; PULSE 64–82; RESP 11–18; TEMP 36.3–36.4; O2SAT 93–100; BMI 34.3
[2024-02-24] MEDS: LACTATED RINGERS 1,000 ML 30 ML IV CONT ×2 (11:52→14:43)
--- NOTE | 2024-02-24 12:09 | PM.IMHP ---
H&P: HPI History of Present Illness Date/Time: 02/24/24 12:09 Chief Complaint: Irregular periods, desired sterilization Narrative: 38 y/o B3 P2012 who has completed her childbearing. She is interested in permanent contraception. Also she has irregular menses and is interested in treatment for this problem. Review of Systems Review of Systems: All systems reviewed & are unremarkable except as noted in HPI and below PMFSH Past Medical History Medical History Anxiety Obesity and not yet delivered Surgical History Surgical History H/O discectomy Family History Family History Father Diabetes type 2, controlled Mother A-fib Congestive heart failure Social History Social History Smoking status: Never smoker Substance use: never Do You Feel Safe in your Home?: Yes Lack of Transportation: No Lack of Food: Never True Current Housing: I Have Housing Concerned About Future Housing: No Difficulty Paying Gas/Electric Bills: No Difficulty Paying for Meds: No Currently Unemployed: No Education: Associate Degree Difficulty w/ Childcare or Family Care: No Living arrangements: with family Spiritual care concerns: No Meds Home Medications and Allergies Home Medications Medication Instructions Recorded Confirmed Type fluoxetine 20 mg capsule 40 mg PO DAILY 06/19/21 02/17/24 History Allergies Allergy/AdvReac Type Severity Reaction Status Date / Time No Known Allergies Allergy Verified 02/24/24 10:09 Vital Signs Vital Signs - 24 hr 02/24/24 11:00 Temperature 36.3 C L Pulse Rate 70 Respiratory Rate 18 Blood Pressure 125/75 Pulse Oximetry 100 Oxygen Delivery Room Air Exam Const: Orientation/consciousness: patient oriented x3 Other: Well-developed, well-nourished female in no acute distress. Neck: Thyroid: thyroid normal Lymphatic: no lymphadenopathy noted (in neck, axilla or inguinal nodes) Resp: Effort & Inspection: normal respiratory effort Auscultation: clear to auscultation bilaterally Cardio: Rate: regular rate Rhythm: regular rhythm Heart sounds: S1 normal heart sound present and S2 normal heart sound present GI: Other: ABD: Soft, nontender, nondistended. No guarding or rebound tenderness. No hepatosplenomegaly. : General: Yes no CVA tenderness Other: External genitalia: normal female hair distribution, without lesion. Urethral meatus: no lesion, non prolapsed. Bladder: no mass, nontender Vagina: well-estrogenized, without lesion or discharge. No cystocele or rectocele. Cervix: no lesion or discharge. Uterus: small, anteverted, freely mobile, nontender Adnexa: no mass or tenderness. Anus/perineum: no lesions, nontender Back/Spine/Pelvis: Back: no CVA tenderness Skin: General skin exam: normal color and no rashes or lesions noted Neuro: General: patient oriented x3 Extrem: Other: Extremities: nontender with no edema Psych: Mental Status: mental status grossly normal Affect: normal affect Assessment and Plan Assessment and plan (1) Metrorrhagia: Code(s): N92.1 - Excessive and frequent menstruation with irregular cycle Status: Acute Assessment and Plan: A: Irregular menses, desired sterility. P: We reviewed medical as well as surgical approaches, and she prefers the latter. She understands there are temporary methods of contraception available to her. She understands that there are nonsurgical options as well as surgical options. She understands that tubal ligation will render her permanently sterile. She understands that there is a failure rate associated with tubal ligation, as well as an inherent ectopic gestation risk. Furthermore, she understands risks of surgery to include risks of anesthesia, risks of pain, infection, bleeding, blood products, thromboembolic phenomena and damage to adjacent structures such as bowel, bladder, ureters, blood vessels and nerves. She understands all these risks and elects to proceed with laparoscopic bilateral tubal ligation, hysteroscopy, dilation and sharp curettage, and endometrial ablation. (2) Unwanted fertility: Code(s): Z30.09 - Encounter for other general counseling and advice on contraception Status: Acute
--- NOTE | 2024-02-24 12:12 | WPDHPUPDATE1 ---
History and Physical Update Update Date/Time: 02/24/24 12:12 History and Physical has been reviewed, including an updated exam of the patient. There are NO changes in the patient's condition. Risks, benefits, and alternatives have been discussed and questions answered. Patient agrees to proceed with procedure.
[2024-02-24] MEDS: KETOROLAC 15 MG/ML VIAL (*BKC) IV PUSH (12:32)
[2024-02-24] MEDS: ACETAMINOPHEN 500 MG TABLET 1000 MG PO (12:32)
--- NOTE | 2024-02-24 13:23 | WPDANESEPPF ---
Anes - Initial Pre Proc Eval Procedure: Operation Date: 02/24/24 13:00 Proposed Procedures p Laparoscopic Tubal Ligation with Fallopian Rings, - Miah Vasquez MD s Hysteroscopy Dilation and Curettage with Izabel Endometrial Ablation - Miah Vasquez MD Date/Time: 02/24/24 13:23 Surgeon: Miah Vasquez MD Pre Op Diagnosis: desires sterilization, excessive heavy bleeding Patient Data Age: 38 Gender: F Height: 1.7 m Weight: 99.5 kg Last Vital Signs Temp 36.3 C L 02/24/24 11:00 Pulse 70 02/24/24 11:00 Resp 18 02/24/24 11:00 BP 125/75 02/24/24 11:00 Pulse Ox 100 02/24/24 11:00 O2 Del Method Room Air 02/24/24 11:00 Allergies Allergy/AdvReac Type Severity Reaction Status Date / Time No Known Allergies Allergy Verified 02/24/24 10:09 Home Medications Medication Instructions Recorded Confirmed Type fluoxetine 20 mg capsule 40 mg PO DAILY 06/19/21 02/17/24 History oxycodone-acetaminophen 5 mg-325 1 - 2 tablet PO Q6H PRN pain #30 02/24/24 Rx mg tablet (Percocet) tabs Patient hx anesthesia problems: none Family hx anesthesia problems: none Results Review: All pre-operative results and documents have been reviewed as part of the pre-operative evaluation. [facility] Past Medical History Medical History Anxiety Obesity and not yet delivered Surgical History Surgical History H/O discectomy Family History Family History Father Diabetes type 2, controlled Mother A-fib Congestive heart failure Social History Social History Smoking status: Never smoker Substance use: never Do You Feel Safe in your Home?: Yes Lack of Transportation: No Lack of Food: Never True Current Housing: I Have Housing Concerned About Future Housing: No Difficulty Paying Gas/Electric Bills: No Difficulty Paying for Meds: No Currently Unemployed: No Education: Associate Degree Difficulty w/ Childcare or Family Care: No Living arrangements: with family Spiritual care concerns: No Anes - Eval Final PreProcedure Day of Procedure 02/24/24 13:23 Patient weight: obese Heart: regular rate and rhythm Lungs: clear to auscultation Airway: Mallampati scale class II Neurological: alert and oriented Last oral intake: >/= 8 hours ASA classification: II Emergent: no Anesthetic plan: proceed Anesthesia type and monitoring: general ETT and standard monitoring Results Review: All pre-operative results and documents have been reviewed as part of the pre-operative evaluation. Informed Consent: The patient's anesthetic plan and its attendant risks and benefits were discussed with the patient/family/POA. Questions were solicited and answers provided to the satisfaction of the patient/family/POA.
[2024-02-24] MEDS: LIDOCAINE HCL 1% LOCAL INJ 20 ML VIAL 12 ML INFILTRATE (13:30)
[2024-02-24 13:49] LABS: BEDSIDEPREGUCG Negative (Negative)
--- NOTE | 2024-02-24 14:16 | W.PM.PROC2 ---
Procedure Note - Detailed Date of Procedure 02/24/24 Pre-op Diagnosis Metrorrhagia Desired sterilization Post-op Diagnosis Same Procedure Performed Laparoscopic bilateral tubal ligation with Falope rings Hysteroscopy Dilation and sharp curettage Endometrial ablation Surgeon Miah Vasquez MD Anesthesia General and Local (1% lidocaine) Findings Small, 1cm left ovarian cyst. Small 0.5 mm subserosal fundal uterine fibroid. Otherwise, unremarkable uterus, tubes and ovaries. Normal anterior and posterior cul de sac, bilateral round and uterosacral ligaments. Vermiform appendix not seen. Description of Procedure The patient was taken to the operating room where general endotracheal anesthesia was administered. She was prepared and draped in the usual sterile fashion in dorsal lithotomy position. The bladder was drained with a red rubber catheter. A sterile speculum was placed into the vagina. The anterior lip of the cervix was grasped with a single-tooth tenaculum. The acorn uterine manipulator was placed. The speculum was withdrawn. Gloves were changed and attention was turned the abdomen. An infraumbilical skin incision was made with a scalpel. The abdomen was tented and a 5mm bladeless trocar was advanced under direct laparoscopic visualization. Pneumoperitoneum was administered using carbon dioxide gas. A survey of the pelvis and abdomen revealed the findings noted above. A second skin incision was made in the midline above the symphysis pubis and an 8mm bladeless trocar was advanced under direct laparoscopic visualization. The fallopian tube on the right side was followed out to the fimbriated end for identification. It was then grasped in the midportion with the Falope ring applicator. The Falope ring was tented applied. A good loop of tube was noted to be distal to the ring. Hemostasis was excellent. The device was reloaded and the contralateral tube was similarly identified and ligated. An excellent application was noted here as well. A total of 2mL of 1% lidocaine was infiltrated into the serosa of the proximal tubes for postoperative anesthesia. The ports were withdrawn. The gas was allowed to escape. The skin incisions were reapproximated using interrupted subcuticular sutures of 4 0 Vicryl. Dermaflex was applied externally. Attention was returned to the vagina, where the acorn manipulator was withdrawn, and the speculum reintroduced. Ten mL of 1% lidocaine was administered in a paracervical block. The cervix was then gently dilated using Hegar dilators until a 7 mm dilator could be passed. Hysteroscopy was performed using sterile saline as a distention medium. Findings are as noted above. Sharp curettage was then performed, and endometrial curettings were collected on a Telfa pad and passed off to be sent to pathology. Finally, the the Izabel device was advanced and endometrial ablation commenced without difficulty. The device was withdrawn and a second look was taken using the hysteroscope. Excellent coverage of the endometrial cavity was noted. The tenaculum was removed. Hemostasis was excellent. Sponge, lap, needle and instrument counts were correct. The patient was awakened and taken to the recovery room in stable condition. I was present and scrubbed through the entire procedure.
[2024-02-24] MEDS: diphenhydrAMINE HCl INJ 50 MG/ML VIAL 12.5 MG IV PUSH ×2 (14:40→15:14)
[2024-02-24] MEDS: SCOPOLAMINE 1 MG PATCH 1 PATCH TRANSDERM (14:41)
[2024-02-24] MEDS: HALOPERIDOL LACTATE 5 MG/ML VIAL 2 MG IV PUSH (14:43)
[2024-02-24] MEDS: ONDANSETRON INJ 4 MG/2 ML VIAL IV PUSH (14:50)
[2024-02-24] MEDS: HYDROmorphone HCL INJ (*CRX) 1 MG/ML SYR 0.25 MG IV PUSH ×4 (15:14→15:41)
--- NOTE | 2024-02-24 15:30 | SUR.PHASEI ---
Pt AICD was turned back on via remote live interrogator Berry. Janet CHRISTINE at bedside being assisted by Jozef. Pt AICD was turned on and confirmed with Jozef that AICD was properly working
== END 2024-02-24 16:42 | disposition home or self-care (01) ==
PROVIDERS: Visit Provider Obstetrics & Gynecology
PROC: (CPT 58671; principal; 2024-02-24 13:00)
PROC: 0U5B8ZZ Destruction of Endometrium, Via Natural or Artificial Opening Endoscopic (ICD-10-PCS; CPT 58563; 2024-02-24 13:00)
DX: N92.1 Excessive and frequent menstruation with irregular cycle (principal); Z30.2 Encounter for sterilization; N83.201 Unspecified ovarian cyst, right side; D25.9 Leiomyoma of uterus, unspecified; E66.9 Obesity, unspecified; Z68.34 Body mass index [BMI] 34.0-34.9, adult
CPT/HCPCS: 58563; 58671; 88305; A4264; A9270; J0330; J1100; J1171; J1200; J1630; J1885; J2003; J2250; J2405; J2704; J3010; J7120

== ENCOUNTER 2024-12-22 13:53 | Emergency (ER) | payer OTHER, SELFPAY ==
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
[2024-12-22 13:55] VITALS: BP 130/70; PULSE 82; RESP 16; TEMP 36.9; O2SAT 100
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
== END 2024-12-22 15:11 | disposition home or self-care (01) ==
PROVIDERS: Emergency Provider Emergency Medicine; Referring Provider Family Medicine
DX: S16.1XXA Strain of muscle, fascia and tendon at neck level, initial encounter (principal); V49.40XA Driver injured in collision with unspecified motor vehicles in traffic accident, initial encounter
CPT/HCPCS: 70450; 72125; 99284